=== PATIENT | female | born 1995 | race Caucasian/White ===

== ENCOUNTER 2020-03-22 19:26 | Emergency (ER) | payer OTHER ==
[~2020-03-22] VITALS: Ht 170.2 cm; Wt 74.5 kg
[2020-03-22 20:29] VITALS: BP 121/74
== END 2020-03-22 20:30 | disposition home or self-care (01) ==
LOC: ER 19:26
DX: T17.228A Food in pharynx causing other injury, initial encounter (principal); X58.XXXA Exposure to other specified factors, initial encounter; Y93.89 Activity, other specified; Y92.89 Other specified places as the place of occurrence of the external cause
CPT/HCPCS: 42809; 99284